=== PATIENT | female | born 1990 | race Caucasian/White ===

== ENCOUNTER 2016-09-22 17:29 | Emergency (ER) | payer OTHER ==
[~2016-09-22] VITALS: Ht 170.2 cm; Wt 122.7 kg
[~2016-09-22 17:29] MED LIST: ACET250T4 PO; DIAZ5TAB PO
[2016-09-22 17:36] VITALS: BP 143/95; PULSE 106; RESP 12; O2SAT 99
--- NOTE | 2016-09-22 18:05 | ED.REPORT ---
HPI-Headache Date of Service Sep 22, 2016 ED Provider: Randa Zaldivar MD Patient is a 26 year old female with a history of pseudotumor cerebri and benign intracranial hypertension presenting to the ED complaining of a headache onset this morning. The patient reports that she woke up with a mild headache that has gotten progressively worse. She reports exacerbation with application of pressure to the right adventist, and radiation of pain to the inferior aspect of her right eye socket. The patient admits to feeling fatigued. She denies any numbness or weakness. Pain is different than her pseudo tumor headaches. Symptoms have been treated with ibuprofen, Tylenol, and her prescribed gabapentin and acetazolamide with no relief. She has had a lumbar puncture within the last two weeks. Patient is followed by Dr. Vee, Neurology. Nursing Notes Stated Complaint: RIGHT SIDE HEAD PAIN Chief Complaint: Headache Nursing Notes Reviewed: Yes Allergies: Coded Allergies: No Known Allergies (Unverified , 08/16/16) Scheduled Acetazolamide (Acetazolamide) 250 Mg Tablet 125 MG PO BID Scheduled PRN Butalbital/Acetamin/Caff 50-300-40 mg (Butalbital/Acetamin/Caff 50-300-40 mg) 1 Each Capsule 1 CAPSULE PO TID PRN PRN Headache Miscellaneous Medications Diazepam (Valium) 5 Mg Tablet 5 MG PO General Time Seen by MD: 18:14 Chief Complaint Headache Hx Obtained From: Patient Arrived By: Walk-in Sudden in Onset?: Yes Onset Occurred: 9 - 12 hours ago Symptom Duration: Since onset Location: : Frontal right Severity: Current: Moderate Severity: Maximum: Moderate Recent Healthcare: No recent hospitalization, Recent doctor visit Similar Sx Previous: Yes Past Medical History Past Medical History "Abnormal EKG" Pleurisy Ovarian cysts Pseudotumor cerebri benign intracranial hypertension right wrist fracture Past Surgical History Reports: Cholecystectomy Family History Reports: Coronary artery disease Smoking History Unknown if Ever Smoker Ambulatory Status Independent Review of Systems Constitutional: Reports: Fatigue, Denies: Weakness - generalized Eyes: Denies: Blurred bilateral, Visual loss bilateral GI: Denies: Nausea, Vomiting Neurologic: Reports: Headache, Denies: Focal weakness, Numbness, Seizure, Syncope, Vision change, Weakness Complete sys rev & neg: except as marked. Physical Exam Initial Vital Signs Vital Signs (First) Date Time Temp Pulse Resp B/P Pulse Ox O2 Delivery O2 Flow Rate FiO2 09/22/16 17:36 36.6 106 12 143/95 99 Room Air Initial VS: Reviewed General/Constitutional: Awake, Alert, No acute distress Appearance / Presentation: Positive: Obese Head / Eyes: Atraumatic, Normocephalic, PERRL, EOMI Neck: Atraumatic, Supple, Full range of motion Neurologic: Oriented X3, Speech NL, No motor deficits, No sensory deficits, CN II - XII intact Strength 5/5 in all extremities No pronator drift Normal heel-keyes ENT: Atraumatic, Airway patent, Mucous membranes moist Respiratory / Chest: Atraumatic, Breath sounds NL Cardiovascular: Heart rate NL, Regular rhythm, Heart sounds NL Abdomen: Atraumatic, Soft, Non-tender Skin: Atraumatic, Color NL, No rash, Warm, Dry Psychiatric: Affect NL, Mood NL Back: Atraumatic, Full range of motion Upper Extremity / MS: Atraumatic, Full range of motion Interpretation & Diagnostics Lab Results Interpretation Result Diagram: 09/22/16 [facility]5 09/22/16 1855 Test 09/22/16 18:55 09/22/16 19:23 White Blood Count 9.3th/mm3 (3.8-10.1) Red Blood Count 4.34mil/mm3 (3.90-5.20) Hemoglobin 12.9g/dL (12.0-15.6) Hematocrit 39.0% (35.0-46.0) Mean Corpuscular Volume 89.9fL (81-100) Mean Corpuscular Hemoglobin 29.7pg (27.0-35.0) Mean Corpuscular Hemoglobin Concent 33.1% (32.0-37.0) Red Cell Distribution Width 14.1% (12.3-15.4) Platelet Count 286bil/L (150-400) Neutrophils (%) (Auto) 47.1% (40-74) Lymphocytes (%) (Auto) 39.5% (14-46) Monocytes (%) (Auto) 7.2% (4-12) Eosinophils (%) (Auto) 5.8% (0-5) Basophils (%) (Auto) 0.3% (0-3) Sodium Level 141mEq/L (134-144) Potassium Level 3.6mEq/L (3.5-5.2) Chloride Level 111mEq/L (97-108) Carbon Dioxide Level 14mmol/L (18-29) Blood Urea Nitrogen 8mg/dL (6-20) Creatinine 0.65mg/dL (0.57-1.00) Estimat Glomerular Filtration Rate 157mL/min (>59) Glucose Level 104mg/dL (60-99) Calcium Level 8.7mg/dL (8.5-10.1) Hold Desai Top Tube Received (Received) Hold Urine Received (Received) CT Head Interpretation IMPRESSION: Negative head CT Dictated by: Mikal Nagel M.D. on 09/22/2016 at 19:31 Approved by: Mikal Nagel M.D. on 09/22/2016 at 19:33 Study: Head CT no contrast Interpretation / Wet Read by: Interpret - Radiologist Re-Eval/Medical Decision Med Decision/Clinical Course 26-year-old female with past medical history of pseudotumor cerebri here with worsening of her headache. Differential diagnosis includes but is not limited to worsening pseudotumor cerebri versus tension headache versus migraine headache versus temporal arteritis. Patient is too young for temporal arteritis , and so at this time, I do not feel she requires ESR or CRP. Her CT head was normal. My plan initially was to perform a lumbar puncture for comfort, however , patient had relief of symptoms with IV medications and was amenable to discharge with Fioricet to go home with. She was given very strict return precautions. She has follow-up with her neurologist set up. Source of Hx: Old records Re-Evaluation/Progress : Time of Eval: 20:16 )( Patient Status: Condition improved Re-Evaluation/Progress Note: Rechecked patient whose condition has improved. Discussed CT results and plan for discharge. The patient understands and agrees to the plan for discharge. All questions were addressed. Counseled Regarding: Diagnosis, Lab results, Need for follow-up, When/why to return to ED Discharge & Departure Impression: Primary Impression: Headache Disposition: Home Discharge Condition All VS Reviewed: Yes Condition: Stable Patient Instructions: Acute Headache (ED) Additional Instructions: Thank you for entrusting us with your care today. The CT scan of your head was normal. Take Fioricet as prescribed. Follow up with your neurologist for a lumbar puncture if symptoms return or worsen. Please return to the emergency department if you develop any new or worsening symptoms. Referrals: Daphne Vidales PA-C, Patti J MD [facility] [place] Attestation Portions of this note were transcribed by Scarlett Stack and Atul Kerr. I, Dr. Zaldivar personally performed the history, physical exam and medical decision- making; I reviewed and confirmed the accuracy of the information in the transcribed note. Signed by: Scarlett Stack and Nella Jimenez, 09/22/16 and 20:25 copies to: Daphne Vidales PA-C; Nereida Vee MD; [facility] Randa Zaldivar MD Sep 22, 2016 18:05 Emmanuelle Stack Sep 22, 2016 18:25 ATUL KERR Sep 22, 2016 19:09
[2016-09-22] MEDS ORDERED: Acetaminophen IV 1,000 MG in IV Premix 1 EACH IV ONE (18:20)
[2016-09-22] MEDS ORDERED: Dexamethasone 10 mg/mL Inj IVPUSH ONE (18:20)
[2016-09-22] MEDS ORDERED: ProchlorPERazine 5 mg/mL 2 mL Inj IVPUSH ONE (18:20)
[2016-09-22] MEDS ORDERED: Ondansetron 2 mg/mL 2 mL Inj IVPUSH ONE (18:20)
[2016-09-22] MEDS ORDERED: 0.9% Sodium Chloride 1,000 ML IV ONE (18:20)
[2016-09-22 19:10] LABS: BASOPHILS % (AUTO) 0.3 % (0-3); EOSINOPHILS % (AUTO) 5.8 % (0-5); MONOCYTES % (AUTO) 7.2 % (4-12); Mean Corpuscular Hemoglobin 29.7 pg (27.0-35.0); Mean Corpuscular Volume 89.9 fL (81-100); NEUTROPHILS % (AUTO) 47.1 % (40-74); Platelet Count 286 bil/L (150-400)
--- NOTE | 2016-09-22 19:35 | DRSVH ---
PROCEDURE: CT BRAIN WITHOUT CONTRAST ([id number]) INDICATIONS: headache TECHNIQUE: Noncontrast 4.5 mm thick angled axial sections acquired from the foramen magnum to the vertex, with c oronal reformats. COMPARISON: [facility], MR, BRAIN W&WO CONTRAST, 09/19/2016, 18:11. FINDINGS: Image quality: Excellent. CSF spaces: Basal cisterns are patent. No extra-axial fluid collections. Ventricles are normal in size and shape. Brain: No midline shift. No intracranial masses or hemorrhage. Vega-white matter interface is norm al. Skull and face: Calvarium and visualized facial bones are intact, without suspicious lesions. Sinuses: Visualized sinuses and mastoids are clear. IMPRESSION: Negative head CT Dictated by: Mikal Nagel M.D. on 09/22/2016 at 19:31 Approved by: Mikal Nagel M.D. on 09/22/2016 at 19:33
[2016-09-22] MEDS ORDERED: Butalbital-Acet-Caffeine Tablet PO ONE (20:20)
[2016-09-22] MEDS ORDERED: BUTA1CAP37 PO (20:22)
[2016-09-22 20:40] VITALS: BP 119/78; PULSE 70; RESP 16; O2SAT 100
[2016-09-22 20:42] VITALS: BP 119/78; PULSE 70; RESP 16; O2SAT 100
[2016-10-03] MEDS ORDERED: PROC10TA PO (14:52)
[2016-10-03] MEDS ORDERED: MELA3TAB35 PO (14:52)
[2016-10-03] MEDS ORDERED: RIZA10TA28 PO (14:52)
[2016-10-03] MEDS ORDERED: TOPI50TA88 PO (14:52)
== END 2016-09-22 20:43 | disposition home or self-care (01) ==
LOC: SED 17:29
DX: R51 Headache (principal); G93.2 Benign intracranial hypertension
CPT/HCPCS: 70450; 80048; 81025; 85025; 96361; 96372; 96374; 96375; 99285; J0780; J1100; J1200; J1885; J2405; J7030

== ENCOUNTER 2017-01-29 16:53 | Emergency (ER) | payer OTHER ==
[~2017-01-29] VITALS: Ht 170.2 cm; Wt 120.5 kg
[~2017-01-29 16:53] MED LIST changes: +PROC10TA PO; +TOPI50TA88 PO
[2017-01-29 17:02] VITALS: BP 137/85; PULSE 65; O2SAT 99
[2017-01-29 17:43] LABS: BASOPHILS % (AUTO) 0.3 % (0-3); EOSINOPHILS % (AUTO) 5.7 % (0-5); Mean Corpuscular Volume 88.5 fL (81-100); NEUTROPHILS % (AUTO) 50.9 % (40-74); Platelet Count 190 bil/L (150-400)
[2017-01-29 19:17] VITALS: BP 113/62; PULSE 68; O2SAT 99
[2017-01-29] MEDS ORDERED: ProchlorPERazine 5 mg/mL 2 mL Inj IVPUSH ONE (20:05)
[2017-01-29] MEDS ORDERED: MetoCLOpramide 5 mg/mL 2 mL Inj IVPUSH ONE (20:05)
[2017-01-29] MEDS ORDERED: 0.9% Sodium Chloride 1,000 ML IV ONE (20:05)
--- NOTE | 2017-01-29 20:05 | ED.REPORT ---
HPI-General Illness Date of Service Jan 29, 2017 ED Provider: Bienvenido Price MD The pt is a 26 y/o female with a hx of idiopathic intracranial hypertension and migraines who presents to the ED complaining of gradually worsening headache for the last week. She describes it as an aching pain in her frontal and parietal area. Her pain has been constant at 8/10 in severity. Denies any associated symptoms at this time. She denies fever, chills, nausea, vomit, neck stiffness, diarrhea, constipation, hematuria ,hematochezia, or unilateral weakness. Visual acuity in the ED is within normal limits. Nursing Notes Stated Complaint: PERSISTENT HEAD PAIN Chief Complaint: Neuro Symptoms/ Deficits Nursing Notes Reviewed: Yes Allergies: Coded Allergies: diphenhydramine (Verified Adverse Reaction, Intermediate, 01/29/17) anxiety, tachycardia topiramate (Verified Adverse Reaction, Intermediate, 01/29/17) behavioral changes Scheduled Acetazolamide (Acetazolamide) 250 Mg Tablet 250 MG PO TID Topiramate (Topiramate) 50 Mg Tablet 50 MG PO HS Increase to 50mg BID after 1 week Scheduled PRN Diazepam (Valium) 5 Mg Tablet 5 MG PO DIRECTED PRN PRN For Headache Prochlorperazine Maleate (Prochlorperazine) 10 Mg Tablet 10 MG PO Q8 PRN PRN For Nausea/Vomiting General Time Seen by MD: 17:43 Chief Complaint Headache Hx Obtained From: Patient Arrived By: Walk-in Sudden in Onset?: Yes Onset Occurred: 1 week ago Symptom Duration: Since onset Location: : Head Quality: Painful Radiation: : Does not radiate Severity: Current: Pain level 8 out of 10 Severity: Maximum: Severe Recent Healthcare: No recent doctor visit Past Medical History Past Medical History "Abnormal EKG" Pleurisy Ovarian cysts Pseudotumor cerebri benign intracranial hypertension right wrist fracture Past Surgical History Reports: Cholecystectomy Family History Reports: Coronary artery disease Smoking History Current Every Day Smoker Ambulatory Status Independent Review of Systems Full Review of Systems Constitutional: Denies: Chills, Fever Eyes: Denies: Blurred bilateral, Diplopia Ears / Nose / Throat: Denies: Earache bilateral Respiratory: Denies: Shortness of breath Cardiovascular: Denies: Chest pain GI: Denies: Constipation, Diarrhea, Hematochezia, Nausea, Vomiting Female: Denies: Hematuria Musculoskeletal: Denies: Back pain, Neck pain Neurologic: Reports: Headache, Denies: Vision change, Weakness Complete sys rev & neg: except as marked. Physical Exam Nursing note and vitals reviewed. Constitutional: Well-developed, well-nourished. Not diaphoretic. Head: Normocephalic and atraumatic. Mouth/Throat: Oropharynx is clear and moist. No oropharyngeal exudate. Eyes: EOM are normal. Pupils are equal, round, and reactive to light. No papilledema. Neck: Supple, no tracheal deviation. No meningismus. Full range of motion. Cardiovascular: Normal rate,regular rhythm. Equal and intact distal pulses throughout. Pulmonary/Chest: Effort normal and breath sounds normal. No respiratory distress. Abdominal: Soft. No distension. There is no tenderness, rebound, or guarding. Bowel sounds present. Musculoskeletal: Range of motion grossly intact, moving all extremities. No edema or tenderness appreciated. Neurological: AOx3. Grossly nonfocal exam. Strength and sensation intact and equal to bilateral upper and lower extremities. Normal finger to nose testing. Unremarkable gait. Skin: Warm and dry, no rashes or pallor appreciated. Psychiatric: Appropriate mood and affect. Behavior appears normal. Vital Signs Vital Signs Date Time Temp Pulse Resp B/P Pulse Ox O2 Delivery O2 Flow Rate FiO2 01/29/17 23:05 36.4 58 123/54 97 Room Air 01/29/17 21:50 36.7 61 130/43 97 Room Air 01/29/17 19:17 36.6 68 113/62 99 Room Air 01/29/17 17:02 36.9 65 137/85 99 Room Air Interpretation & Diagnostics Lab Results Interpretation Result Diagram: 01/29/17 1738 01/29/17 1738 Test 01/29/17 17:38 01/29/17 17:54 White Blood Count 11.8th/mm3 (3.8-10.1) Red Blood Count 4.60mil/mm3 (3.90-5.20) Hemoglobin 13.8g/dL (12.0-15.6) Hematocrit 40.7% (35.0-46.0) Mean Corpuscular Volume 88.5fL (81-100) Mean Corpuscular Hemoglobin 30.0pg (27.0-35.0) Mean Corpuscular Hemoglobin Concent 33.9% (32.0-37.0) Red Cell Distribution Width 13.5% (12.3-15.4) Platelet Count 190bil/L (150-400) Neutrophils (%) (Auto) 50.9% (40-74) Lymphocytes (%) (Auto) 35.9% (14-46) Monocytes (%) (Auto) 7.0% (4-12) Eosinophils (%) (Auto) 5.7% (0-5) Basophils (%) (Auto) 0.3% (0-3) Sodium Level 136mEq/L (134-144) Potassium Level 3.7mEq/L (3.5-5.2) Chloride Level 106mEq/L (97-108) Carbon Dioxide Level 17mmol/L (18-29) Blood Urea Nitrogen 7mg/dL (6-20) Creatinine 0.55mg/dL (0.57-1.00) Estimat Glomerular Filtration Rate 190mL/min (>59) Glucose Level 79mg/dL (60-99) Calcium Level 8.6mg/dL (8.5-10.1) Total Bilirubin 0.2mg/dL (0.0-1.2) Aspartate Amino Transf (AST/SGOT) 22U/L (0-50) Alanine Aminotransferase (ALT/SGPT) 25U/L (0-32) Alkaline Phosphatase 83U/L (25-150) Total Protein 7.5g/dL (6.4-8.4) Albumin 4.5g/dL (3.4-5.0) Hold Desai Top Tube Received (Received) Hold Urine Received (Received) CT Head Interpretation IMPRESSION: No acute intracranial disease process. Dictated by: Dottie Thorpe MD, PhD on 01/29/2017 at 20:01 Approved by: Dottie Thorpe MD, PhD on 01/29/2017 at 20:03 Study: Head CT no contrast Interpretation / Wet Read by: Interpret - Radiologist Re-Eval/Medical Decision Med Decision/Clinical Course In summary, 26-year-old female with a history of migraines and idiopathic intracranial hypertension presenting to the ED for evaluation of a gradual onset headache that started approximately one week ago. Differential includes SAH vs meningitis vs intracranial mass or hematoma vs acute angle closure glaucoma vs temporal arteritis vs tension/cluster/migraine headache. Doubt SAH given that headache not sudden or maximal at onset, not described as 'worst of life', and normal neuro exam. Doubt meningitis given patient afebrile, not toxic appearing, no neck stiffness. Intracranial mass possible, though no focal neurologic findings and lack of other associated symptoms, clinical presentation make this less likely. No eye pain or vision changes, no unilateral symptoms. No temporal tenderness to palpation. CT scan here in the ED negative for acute bleed or mass. Laboratory studies demonstrate a white blood cell count of 11.8, CBC and CMP otherwise grossly within normal limits. Triage note mentioned something about vague visual complaints, however upon asking the patient about this, she denies any visual complaints at this time and states that she has just been needing to get her eyes checked. She states that she has had vision changes with pseudotumor in the past and has not had this this time. Patient given Reglan, Compazine, and IVFs here in the ED w/ complete resolution of symptoms. I do not think that she needs a lumbar puncture at this time given resolution of symptoms and patient agrees with this , does not want a lumbar puncture at this time. Given above, history consistent with previous headaches, as well as patient's clinical improvement in the ED, reasonable to d/c home w/ PCP followup in the next 1 to 2 days. Careful return precautions were discussed, and patient verbalized understanding and agreement w/ the plan as stated. Denied further questions. Time of Eval: 22:06 Patient Status: Condition improved Re-Evaluation/Progress Note: Rechecked pt. Her headache has significantly improved and she denies any vision change. Discussed lab results, imaging results, diagnosis and plan to discharge. Pt understands and agrees with the plan. F/U instruction and RTER warning given. All questions addressed. Counseled Regarding: Diagnosis, Lab results, Need for follow-up, When/why to return to ED Discharge & Departure Primary Impression: Headache Headache type: unspecified Headache chronicity pattern: acute headache Intractability: not intractable Qualified Code: R51 - Headache Disposition: Home Discharge Condition All VS Reviewed: Yes Condition: Stable Patient Instructions: Acute Headache (ED) Additional Instructions: Your lab results and imaging results were reassuring, as was your reassessment and improvement. I don't think there is an emergent cause for your headache right now, but as we discussed, there are serious causes that can be late to present themselves. As such, if you develop any new or worsening headahce, vision change, nausea, vomiting, or if there is anything else of concern to you , return to the emergency department immediately. Follow up with your regular doctor tomorrow for reassessment and for further evaluation. Thank you for allowing us to be a part of your care in the ED today. Referrals: Daphne Vidales PA-C (PCP) Scribe Attestation Portions of this note were transcribed by Marjan Garcia. I,, personally performed the history, physical exam and medical decision-making;I reviewed and confirmed the accuracy of the information in the transcribed note. Signed by Nella Byrne. 01/29/17 copies to: Daphne Vidales PA-C, William B MD Jan 29, 2017 20:05 Marjan Gracia Jan 29, 2017 21:00
--- NOTE | 2017-01-29 20:05 | DRSVH ---
PROCEDURE: CT BRAIN WITHOUT CONTRAST ([id number]) INDICATIONS: headache TECHNIQUE: Noncontrast 4.5 mm thick angled axial sections acquired from the foramen magnum to the vertex, with c oronal reformats. COMPARISON: [facility], MR, BRAIN W&WO CONTRAST, 09/19/2016, 18:11. FINDINGS: Image quality: Excellent. CSF spaces: Basal cisterns are patent. No extra-axial fluid collections. Ventricles are normal in size and shape. Brain: No midline shift. No intracranial masses or hemorrhage. Vega-white matter interface is norm al. Skull and face: Calvarium and visualized facial bones are intact, without suspicious lesions. Sinuses: Visualized sinuses and mastoids are clear. IMPRESSION: No acute intracranial disease process. Dictated by: Dottie Thorpe MD, PhD on 01/29/2017 at 20:01 Approved by: Dottie Thorpe MD, PhD on 01/29/2017 at 20:03
[2017-01-29 21:50] VITALS: BP 130/43; PULSE 61; O2SAT 97
[2017-01-29 23:05] VITALS: BP 123/54; PULSE 58; O2SAT 97
== END 2017-01-29 23:06 | disposition home or self-care (01) ==
LOC: SED 16:53
DX: R51 Headache (principal); G93.2 Benign intracranial hypertension; F17.200 Nicotine dependence, unspecified, uncomplicated; Z87.09 Personal history of other diseases of the respiratory system; Z86.79 Personal history of other diseases of the circulatory system; Z90.49 Acquired absence of other specified parts of digestive tract; Z88.8 Allergy status to other drugs, medicaments and biological substances
CPT/HCPCS: 36415; 70450; 80053; 81025; 85025; 96374; 96375; 99285; J0780; J2765; J7030